=== PATIENT | male | born 1955 | race Caucasian/White ===

== ENCOUNTER → 2020-11-25 | Day surgery (SDC) | payer OTHER ==
[~2020-11-25] VITALS: Ht 188 cm; Wt 99.8 kg
[~2020-11-25] MED LIST: ACETAMINOPHEN500 M1 PO; ATORVASTATIN CA10 MG PO; CLOPIDOGREL75 MG PO; HYDROCHLOROTH12.5 MG PO; LOSARTAN POTASS50 MG PO; METFORMIN HCL1000 MG PO; PANTOPRAZOLE SO40 MG PO; ULTRAM50 MG PO
[2020-11-25 08:12] LABS: BUN/CREAT RATIO (CALC) 11.4 RATIO; CREATININE 1.05 mg/dL (0.67-1.17); POTASSIUM 4.4 mmol/L (3.5-5.1)
[2020-11-25 08:32] LABS: BASOPHIL 0.6 % (0-2); EOSINOPHIL 9.1 % (0-5); HCT 39.7 % (42.0-52.0); HGB 14.4 g/dl (13.2-18.0); LYMPHOCYTE 9.3 % (15-48); MCH 33.3 pg (25.0-31.0); MCHC 36.3 g/dL (32.0-36.0); MCV 91.9 fL (78.0-100.0); MONOCYTE 10.3 % (0-12); NEUTROPHIL 70.3 % (41-80); NRBC 0; PLT 146 K/uL (150-400); RBC 4.32 M/uL (4.70-6.00)
== END | disposition home or self-care (01) ==
LOC: FAS 07:31
PROVIDERS: Anesthesiology
DX: C82.91 Follicular lymphoma, unspecified, lymph nodes of head, face, and neck (principal); K21.9 Gastro-esophageal reflux disease without esophagitis; I10 Essential (primary) hypertension; E11.9 Type 2 diabetes mellitus without complications; Z79.82 Long term (current) use of aspirin; Z79.84 Long term (current) use of oral hypoglycemic drugs; E78.00 Pure hypercholesterolemia, unspecified; I07.1 Rheumatic tricuspid insufficiency
CPT/HCPCS: 36415; 71045; 76000; 77001; 80048; 85025; 93005; C1788; J0690; J1644; J2001; J2250; J2405; J2704